=== PATIENT | female | born 1950 | race Hispanic/Latino ===

== ENCOUNTER 2024-01-04 08:00 | Outpatient (RCR) | payer MEDICARE ==
[~2024-01-04 08:00] MED LIST: GLUCOTROL XL10 MG PO; LIPITOR10 MG PO; METFORMIN HCL500 MG PO; ZESTRIL10 MG PO
== END 2024-01-05 ==
LOC: PT 08:00
PROVIDERS: ATTEND Specialist
DX: Z47.1 Aftercare following joint replacement surgery (principal); Z96.652 Presence of left artificial knee joint; M25.562 Pain in left knee; M25.662 Stiffness of left knee, not elsewhere classified; M62.81 Muscle weakness (generalized)

== ENCOUNTER 2024-02-08 07:38 | Outpatient (RCR) | payer MEDICARE | END 2024-03-06 | LOC: PT 07:38 | PROVIDERS: ATTEND Specialist | DX: Z47.1 Aftercare following joint replacement surgery (principal); Z96.652 Presence of left artificial knee joint; M25.562 Pain in left knee ==